=== PATIENT | male | born 1975 | race Caucasian/White ===

== ENCOUNTER 2019-01-30 21:49 | Emergency (ER) | payer OTHER, SELFPAY ==
[2019-01-30 22:20] VITALS: BP 113/71; PULSE 77; RESP 16; TEMP 36.6; O2SAT 98; BMI 23.0
--- NOTE | 2019-01-30 22:24 | DI.RAD.S_ITS ---
PROCEDURE: XR FINGER LT MIN 2V INDICATIONS: nail gun injury TECHNIQUE: AP hand, 2 views of the 3 finger(s) acquired. COMPARISON: None. FINDINGS: Bones: There is mild fragmentation of the bone of the dorsal plate of the middle phalanx of the left second digit which may represent an acute fracture. A radiodense foreign body is present at the distal aspects of the left second metacarpal. No other fracture or dislocation. Soft tissues: No suspicious soft tissue calcifications. IMPRESSION: 1. Questionable fragmentation of the bone at the base of the second phalanx of the left second digit. Please correlate with site of injury. 2. Soft tissue foreign body adjacent to the second metacarpal which may represent a chronic soft tissue calcification, although metallic foreign body cannot be excluded. Dictated by: Jordyn Thornton M.D. on 01/31/2019 at 7:09 Approved by: Jordyn Thornton M.D. on 01/31/2019 at 7:14
--- NOTE | 2019-01-30 22:37 | ED_ITS ---
HPI - General Adult General Chief complaint: Wound/Laceration Stated complaint: shoot index finger left hand with nail gun Time Seen by Provider: 01/30/19 22:04 Source: patient Mode of arrival: ambulatory Limitations: no limitations History of Present Illness HPI narrative: 43-year-old male here for evaluation of a injury he sustained to his left index finger. He stated that yesterday he hit it with a nail from a nail gun. He feels that the nail only when a small distance any was able to remove it. Had some swelling afterwards. Arrives today for tenderness to his finger. Review of Systems Musculoskeletal Denies tingling Comments: Pain left index finger Integumentary/Breasts Comments: Small cut to his left index finger Neurologic Denies tingling Hematologic/Lymphatic Denies easy bleeding and Denies easy bruising FOR[facility]LY [facility] Medical History Patient denies medical problems (Acute) Social History lives independently: Yes Social History lives independently: Yes Exam Initial Vital Signs Initial Vital Signs: Vital Signs Temperature 97.9 F 01/30/19 22:20 Pulse Rate 77 01/30/19 22:20 Respiratory Rate 16 01/30/19 22:20 Blood Pressure 113/71 01/30/19 22:20 Pulse Oximetry 98 01/30/19 22:20 Const General: cooperative, comfortable, well developed and well groomed Cardio Pulses: radial pulses present on the left Skin Other: 3-4 mm abrasion to the skin on the dorsum of the left index finger just distal to the PIP joint. Neuro General: alert and awake Sensory Exam: no sensory deficits noted Extrem General: normal to inspection and capillary refill normal Other: Swelling around the PIP joint left index finger Course Orders Ordered: ED Orders 01/30/19 22:24 XR finger LT min 2V Stat Vital Signs - 8 hr 01/30/19 22:20 01/30/19 23:06 Temperature 97.9 F Pulse Rate 77 Respiratory Rate 16 12 Blood Pressure 113/71 Pulse Oximetry 98 Medical Decision Making Imaging Data And x-ray: Attestation: I personally reviewed and interpreted this imaging study as follows: My impression: No fractures, no dislocation, no foreign body MDM Narrative Medical decision making narrative: There is no fractures or dislocations a foreign body noted on the x-ray. Does have some swelling around the PIP joint to the left index finger however no other signs of infection. He is able to bend it without any difficulty. Will hold on further workup for now. No antibiotics needed. 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 Was given return precautions and follow-up instructions. He expressed understanding and agreement with plan Discharge Plan Departure Patient Disposition: Home Clinical Impression: Injury of finger by nail gun Qualifiers: Encounter type: initial encounter Laterality: left Qualified Code(s): S69.92XA - Unspecified injury of left wrist, hand and finger(s), initial encounter Discharge Date/Time: 01/30/19 23:06 Interventions: ED Discharge Assessment Last Done: 01/30/19 23:06 Activity Restrictions/Additional Instructions: You can use ibuprofen for any discomfort. Recommend that you ice your finger. 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 Return to the emergency department for any increase in redness or swelling or pain.
[2019-01-30 23:06] VITALS: RESP 12
== END 2019-01-30 23:06 | disposition home or self-care (01) ==
PROVIDERS: Emergency Provider Emergency Medicine
DX: S61.211A Laceration without foreign body of left index finger without damage to nail, initial encounter (principal); W29.4XXA Contact with nail gun, initial encounter
CPT/HCPCS: 73140; 99283

== ENCOUNTER → 2021-02-13 12:16 | Outpatient (CLI) | payer OTHER, SELFPAY ==
--- NOTE | 2021-02-13 12:19 | DI.MRI.S_ITS ---
PROCEDURE: MR SHOULDER LT W CON INDICATIONS: Pain in unspecified shoulder Cervicalgia TECHNIQUE: After the administration of 12 mL of dilute intra-articular Gadolinium contrast, oblique coronal T1 and T2 spin echo with fat saturation, oblique sagittal T1 spin echo with and without fat saturation, oblique sagittal T2 fast spin echo with fat saturation, axial T1 spin echo with fat saturation through the shoulder. COMPARISON: None. FINDINGS: Mild hardware artifact involving the superior glenoid. Rotator cuff: Supraspinatus tendinopathy and low-grade articular and bursal surface fraying. No full-thickness or large retracted defect. There is also mild infraspinatus tendinopathy. Teres minor tendon appears intact. Subscapularis tendon appears intact. No atrophy of the rotator cuff musculature Bones and bursae: No bone marrow contusions or fractures. Moderate hypertrophic acromioclavicular joint degeneration. There is minimal glenohumeral joint degeneration. Acromion demonstrates conventional anatomy, without an os acromiale. Mild subacromial-subdeltoid bursitis without T1 shortening.. Capsule and soft tissues: Labrum: Irregularity at the superior labrum presumably combination of degenerative changes and postsurgical sequela related to prior labral repair. Mild blunting of the posterior labrum however no discrete intrasubstance gadolinium signal intensity. Glenohumeral ligaments: Inferior and superior glenohumeral ligaments are intact. There is lax appearance of the posterior joint capsule, with superimposed bright dark micro-susceptibility postsurgical artifact. Biceps tendon: Long head of the biceps tendon intact. Rotator interval: Normal signal intensity. Coracohumeral ligament: Intact. IMPRESSION: Postsurgical changes related to of superior labral repair. Mild frayed appearance and irregularity could be postoperative sequela. Mild blunting of the posterior labrum. No discrete intrasubstance gadolinium signal intensity. Lax appearance of the posterior joint capsule, with superimposed postoperative changes as above. The exact clinical significance is unclear, and this could be sequela of prior surgery. No definite posterior subluxation of the humeral head relative to the glenoid. Supraspinatus tendinopathy with low-grade articular and bursal surface fraying. Mild infraspinatus tendinopathy Mild subacromial-subdeltoid bursitis. Dictated by: Tacho Rico M.D. on 02/13/2021 at 14:33 Approved by: Tacho Rico M.D. on 02/13/2021 at 14:44
--- NOTE | 2021-02-13 12:19 | DI.MRI.S_ITS ---
PROCEDURE: MR CERVICAL SPINE WO CON INDICATIONS: Pain in unspecified shoulder Cervicalgia TECHNIQUE: Noncontrast sagittal T1 spin echo and T2 fast spin echo, sagittal STIR, foraminal oblique sagittal T2 fast spin echo, and axial gradient echo or T2 fast spin echo through the cervical spine. COMPARISON: None. FINDINGS: Image quality: Excellent. Alignment and Curvature: There is normal bony alignment. Bones: Postsurgical changes compatible C5-C6 ACDF. Marrow demonstrates normal overall signal. Spinal Cord: Visualized spinal cord has normal size and signal. No cerebellar tonsillar herniation. Paraspinous Soft Tissues: No paravertebral masses. Prevertebral soft tissues are normal in thickness. C2-C3: Normal appearance. C3-C4: Normal appearance. C4-C5: Normal appearance. C5-C6: Status post ACDF. No central stenosis. No neural foraminal narrowing. No neural compression. C6-C7: Loss of disc signal. Moderate, diffuse disc bulge. [id number] narrowing of the central canal. Mild left neural foraminal narrowing. No neural compression. C7-T1: Normal appearance. IMPRESSION: 1. Status post C5-C6 ACDF. 2. Mild C6-C7 degenerative disc disease. 3. Mild to moderate C6-C7 central canal narrowing. 4. Mild left C6-C7 neural foraminal narrowing. 5. No neural compression. Dictated by: Shannon Lezama MD, PhD on 02/13/2021 at 14:15 Approved by: Shannon Lezama MD, PhD on 02/13/2021 at 14:18
--- NOTE | 2021-02-13 12:19 | DI.MRI.S_ITS ---
PROCEDURE: MR SHOULDER RT W CON INDICATIONS: Pain in unspecified shoulder Cervicalgia TECHNIQUE: After the administration of 12 mL of dilute intra-articular Gadolinium contrast, oblique coronal T1 and T2 spin echo with fat saturation, oblique sagittal T1 spin echo with and without fat saturation, oblique sagittal T2 fast spin echo with fat saturation, axial T1 spin echo with fat saturation through the shoulder. COMPARISON: None. FINDINGS: Rotator cuff: Low-grade articular and bursal surface fraying of the supraspinatus tendon with background tendinopathy. There is also infraspinatus tendinopathy with mild thickening. The teres minor tendon appears intact. Subscapularis tendon appears grossly intact. No atrophy of the rotator cuff muscles although mild fatty infiltration of the infraspinatus is noted Bones and bursae: No bone marrow contusions or fractures. Severe hypertrophic acromioclavicular joint degeneration. Acromion demonstrates conventional anatomy, without an os acromiale. Trace subacromial-subdeltoid bursitis. Capsule and soft tissues: Labrum: Superior labral signal changes with bucket-handle appearance. There is also blunted appearance of the posterosuperior labrum. There is adjacent segmental glenoid rim sclerosis and spurring. Glenohumeral ligaments: Inferior and superior glenohumeral ligaments are intact. Biceps tendon: Not seen and probably due to postsurgical changes given soft tissue anchors seen in the proximal humeral diaphysis, versus rupture Rotator interval: Normal signal intensity. Coracohumeral ligament: Intact. IMPRESSION: Rotator cuff tendinopathy with low-grade articular and bursal surface fraying as above. Possible superior labral tear with bucket-handle appearance, in addition to blunted appearance of the posterosuperior labrum, suggestive of chronic tear and or advanced degeneration. Alternatively, these findings could be related to prior surgery therefore please correlate with operative history. Long head biceps tendon not well seen likely related to postsurgical sequela/tenodesis. Dictated by: Tacho Rico M.D. on 02/13/2021 at 17:02 Approved by: Tacho Rico M.D. on 02/13/2021 at 17:11
--- NOTE | 2021-02-13 12:21 | DI.RAD.S_ITS ---
PROCEDURE: FL SHOULDER INJECTION MR/CT RT INDICATIONS: Pain in unspecified shoulder Cervicalgia COMPARISON: None. TECHNIQUE: The indications, alternatives, benefits, risks, and complications of the procedure were explained to the patient. Written informed consent was obtained and placed in the chart. The shoulder was examined fluoroscopically and a site for needle placement chosen for entry into the glenohumeral joint from an anterior approach. The skin was prepped and draped in a sterile fashion, and 1% lidocaine infiltrated from skin down to joint capsule. A spinal needle was inserted into the glenohumeral joint, and a small amount of iodinated contrast media injected to confirm intra-articular placement of the needle tip. This was followed by approximately 12 mL dilute solution of a gadolinium containing MR contrast agent. The needle was removed and a dressing was applied. The patient was given postprocedural instructions and sent to the MR suite for MR imaging. FINDINGS: A single fluoroscopic spot image demonstrates intra-articular location of injected iodinated contrast. IMPRESSION: Successful fluoroscopically guided administration of dilute Gadolinium solution into the shoulder joint for MR arthrogram. Dictated by: Tacho Rico M.D. on 02/13/2021 at 16:55 Approved by: Tacho Rico M.D. on 02/13/2021 at 16:55
--- NOTE | 2021-02-13 12:21 | DI.RAD.S_ITS ---
PROCEDURE: FL SHOULDER INJECTION MR/CT LT INDICATIONS: Pain in unspecified shoulder Cervicalgia COMPARISON: [facility], MR, MR SHOULDER LT W CON, 02/13/2021, 13:32. TECHNIQUE: The indications, alternatives, benefits, risks, and complications of the procedure were explained to the patient. Written informed consent was obtained and placed in the chart. The shoulder was examined fluoroscopically and a site for needle placement chosen for entry into the glenohumeral joint from an anterior approach. The skin was prepped and draped in a sterile fashion, and 1% lidocaine infiltrated from skin down to joint capsule. A spinal needle was inserted into the glenohumeral joint, and a small amount of iodinated contrast media injected to confirm intra-articular placement of the needle tip. This was followed by approximately 12 mL dilute solution of a gadolinium containing MR contrast agent. The needle was removed and a dressing was applied. The patient was given postprocedural instructions and sent to the MR suite for MR imaging. FINDINGS: A single fluoroscopic spot image demonstrates intra-articular location of injected iodinated contrast. IMPRESSION: Successful fluoroscopically guided administration of dilute Gadolinium solution into the shoulder joint for MR arthrogram. Dictated by: Tacho Rico M.D. on 02/13/2021 at 14:29 Approved by: Tacho Rico M.D. on 02/13/2021 at 14:31
== END ==
DX: M54.2 Cervicalgia (principal); M50.323 Other cervical disc degeneration at C6-C7 level; M48.02 Spinal stenosis, cervical region; M25.519 Pain in unspecified shoulder; M19.011 Primary osteoarthritis, right shoulder; M75.52 Bursitis of left shoulder; Z98.1 Arthrodesis status
CPT/HCPCS: 23350; 72141; 73222; 77002